=== PATIENT | male | born 1970 | race Caucasian/White ===

== ENCOUNTER 2018-01-05 16:44 | Emergency (ER) | payer OTHER ==
[2018-01-05 17:07] VITALS: RESP 16
[2018-01-05] MEDS ORDERED: DIPH,PERTUS(ACELL)TETVAC-LF 0.5 ML VIAL IM ONE (19:34)
--- NOTE | 2018-01-05 20:29 | ED ---
General Adult HPI - General Chief complaint: Wound/Laceration Stated complaint: Laceration ear Source: patient, RN notes reviewed Mode of arrival: ambulatory Limitations: no limitations - History of Present Illness Initial comments: 47-year-old male presents to the emergency department for a chief complaint of left ear laceration about 4 hours ago. Patient states he was working on a skeet shooter when one of the blades covered in rubber hit him on the side of the head and lacerated his left ear. Patient denies any loss of consciousness. Patient denies any severe headaches vomiting or confusion. Patient denies any visual changes. Patient denies any neck pain or back pain. Patient denies any other complaints at this time and shortness of breath, chest pain, abdominal pain, nausea or vomiting. - Related Data Allergies Allergy/AdvReac Type Severity Reaction Status Date / Time No Known Allergies Allergy Verified 01/05/18 17:07 Review of Systems ROS Statement: Those systems with pertinent positive or pertinent negative responses have been documented in the HPI. ROS Other: All systems not noted in ROS Statement are negative. Past Medical History Additional Past Medical History / Comment(s): Chronic back pain History of Any Multi-Drug Resistant Organisms: None Reported Past Surgical History: Orthopedic Surgery Past Psychological History: PTSD Smoking Status: Never smoker Past Alcohol Use History: None Reported Past Drug Use History: None Reported General Exam Limitations: no limitations General appearance: alert, in no apparent distress Head exam: Present: normocephalic Eye exam: Present: normal appearance, PERRL, EOMI. Absent: scleral icterus, conjunctival injection, periorbital swelling ENT exam: Present: normal oropharynx (uvula midline), mucous membranes moist, normal external ear exam (Patient's left ear is lacerated across the ear lobe about 2.5 cm. Patient has swelling anterior and inferior to the left ear. Patient states he can hear out of it especially when the pinna is pulled superiorly.). Absent: TM's normal bilaterally (Left tympanic membrane not visualized due to swelling) Neck exam: Present: normal inspection, full ROM. Absent: tenderness, meningismus, lymphadenopathy Respiratory exam: Present: normal lung sounds bilaterally. Absent: respiratory distress, wheezes, rales, rhonchi, stridor Cardiovascular Exam: Present: regular rate, normal rhythm, normal heart sounds. Absent: systolic murmur, diastolic murmur, rubs, gallop, clicks Neurological exam: Present: alert, oriented X3, CN II-XII intact, other (GCS 15) Course Vital Signs 01/05/18 17:05 Temperature 97.7 F Pulse Rate 91 Respiratory 16 Rate Blood Pressure 131/85 O2 Sat by Pulse 96 Oximetry Procedures - Procedures Initial comment: Body area: Left left earlobe Laceration length: 2.5 cm Foreign bodies: no foreign bodies Tendon involvement: none Nerve involvement: none Vascular damage: no Anesthesia: local infiltration Local anesthetic: 6 mL 1% lidocaine Preparation: Patient was prepped and draped in the usual sterile fashion. Irrigation solution: saline Irrigation method: Saline jet lavage , iodine also used Skin closure:5-0 Ethilon using sterile technique Number of sutures: 9 Technique: interupted Dressing: antibiotic ointment/ gauze Patient tolerance: Patient tolerated the procedure well with no immediate complications. Medical Decision Making - Medical Decision Making 47-year-old male presents to the emergency department for a chief complaint of laceration to the left ear about 3 hours ago. Patient was hit in the side of the head with a rubber blade from a skate Trapper. Patient denies any loss of consciousness, head pain, confusion, neck pain, or back pain. On exam patient has some swelling anterior and inferior to the left ear. Mild ecchymosis noted inferior to the left ear. Ear lobe is lacerated 2.5 cm. GCS 15. Patient was told that CT facial bones and brain and C-spine would be ordered. Patient refused these. He was explained to him that these were recommended but he still refused and stated that he would rather monitor for any worsening symptoms. Ear was sutured with 9 sutures. Bacitracin and a dressing was then applied. After it was cleaned with saline and iodine. Patient will return to the emergency department in 7 days to have them removed. He will return sooner if he notices any severe headaches, vomiting, confusion, signs of infection. He will follow up with primary care in 1-2 days. Disposition Clinical Impression: Laceration Disposition: HOME SELF-CARE Condition: Good Instructions: Care For Your Stitches (ED), Laceration (ED) Additional Instructions: Please return to the emergency department if you have any worsening symptoms or signs of infection. Return to the ER if you notice any signs of confusion, vomiting, or severe headache. Return to the emergency department in 7 days to have sutures removed. Otherwise follow-up with primary care in 1-2 days. Is patient prescribed a controlled substance at d/c from ED?: No Referrals: None,Stated [Primary Care Provider] - 1-2 days Time of Disposition: 20:28
[2018-01-05 20:56] VITALS: BP 143/78; PULSE 78; TEMP 97.9
== END 2018-01-05 20:56 | disposition home or self-care (01) ==
LOC: EC 16:44
DX: S01.312A Laceration without foreign body of left ear, initial encounter (principal); Z23 Encounter for immunization; W31.89XA Contact with other specified machinery, initial encounter
CPT/HCPCS: 12011; 90471; 90715; 99282